=== PATIENT | female | born 1965 | race Caucasian/White ===

== ENCOUNTER 2021-10-20 20:05 | Emergency (ER) | payer OTHER ==
[2021-10-20 20:52] VITALS: BP 124/70; PULSE 74; RESP 18; TEMP 98.1
--- NOTE | 2021-10-20 20:57 | ED ---
General Adult HPI - General Source: patient Mode of arrival: wheelchair Limitations: no limitations <Jocy Bo - Last Filed: 10/20/21 20:56> - History of Present Illness -: hour(s) Radiation: non-radiation Severity scale (1-10): 7 Quality: sharp Consistency: constant Improves with: immobilization Worsens with: movement Associated Symptoms: denies other symptoms Treatments Prior to Arrival: none <Edilberto Damon - Last Filed: 10/21/21 21:24> - General Chief complaint: Extremity Injury, Lower Stated complaint: Fall-R foot injury - History of Present Illness Initial comments: Patient is a 56-year-old female presenting with chief complaint of right foot pain. Patient states that she was carrying a cooler when she tripped and her foot slid underneath her. She is complaining of pain mainly on the dorsal surface of the foot in the toes. She states the pain radiates up the calf. She denies any numbness, tingling, weakness, loss of range of motion, swelling, bruising, redness. (Jocy Bo) - Related Data Home Medications Medication Instructions Recorded Confirmed Atorvastatin [Lipitor] 40 mg PO HS 12/05/15 12/05/15 Esomeprazole Magnesium [NexIUM] 40 mg PO DAILY 12/05/15 12/05/15 Sertraline HCl [Zoloft] 100 mg PO DAILY 12/05/15 12/05/15 Venlafaxine HCl ER [Effexor Xr] 150 mg PO DAILY 12/05/15 12/05/15 norethindrone ac-eth estradioL 1 tab PO DAILY 12/05/15 12/05/15 [Loestrin 21 1-20 Tablet] Allergies Allergy/AdvReac Type Severity Reaction Status Date / Time No Known Allergies Allergy Verified 10/20/21 20:53 Review of Systems ROS Other: All systems not noted in ROS Statement are negative. <Jocy Bo - Last Filed: 10/20/21 20:56> ROS Other: All systems not noted in ROS Statement are negative. <Edilberto Damon - Last Filed: 10/21/21 21:24> ROS Statement: Those systems with pertinent positive or pertinent negative responses have been documented in the HPI. Past Medical History Past Medical History: GERD/Reflux, Hyperlipidemia, Hypertension Additional Past Medical History / Comment(s): pre-diabetic diagnosed may History of Any Multi-Drug Resistant Organisms: None Reported Past Surgical History: Tubal Ligation Past Psychological History: Depression Smoking Status: Current every day smoker Past Alcohol Use History: Occasional Past Drug Use History: None Reported <Jocy Bo - Last Filed: 10/20/21 20:56> General Exam Limitations: no limitations <Jocy Bo - Last Filed: 10/20/21 20:56> General appearance: alert, in no apparent distress Head exam: Present: atraumatic, normocephalic, normal inspection Eye exam: Present: normal appearance, PERRL, EOMI. Absent: scleral icterus, conjunctival injection, periorbital swelling ENT exam: Present: normal exam, mucous membranes moist Neck exam: Present: normal inspection. Absent: tenderness, meningismus, lymphad enopathy Respiratory exam: Present: normal lung sounds bilaterally. Absent: respiratory distress, wheezes, rales, rhonchi, stridor Cardiovascular Exam: Present: regular rate, normal rhythm, normal heart sounds. Absent: systolic murmur, diastolic murmur, rubs, gallop, clicks GI/Abdominal exam: Present: soft, normal bowel sounds. Absent: distended, tenderness, guarding, rebound, rigid Extremities exam: Present: normal inspection, full ROM, tenderness (Anterior foot tenderness), normal capillary refill. Absent: pedal edema, joint swelling, calf tenderness Back exam: Present: normal inspection Neurological exam: Present: alert, oriented X3, CN II-XII intact Psychiatric exam: Present: normal affect, normal mood Skin exam: Present: warm, dry, intact, normal color. Absent: rash <Edilberto Damon - Last Filed: 10/21/21 21:24> Course <Edilberto Damon - Last Filed: 10/21/21 21:24> Vital Signs 10/20/21 20:45 Temperature 98.1 F Pulse Rate 74 Respiratory 18 Rate Blood Pressure 124/70 O2 Sat by Pulse 100 Oximetry - Reevaluation(s) Reevaluation #1: 10/21/21 Medical records reviewed (Edilberto Damon) Reevaluation #2: 10/21/21 Patient has pain control here in the ER (Edilberto Damon) Reevaluation #3: 10/21/21 Patient informed results questions are answered (Edilberto Damon) Medical Decision Making - Radiology Data Radiology results: report reviewed (X-ray right foot is negative for fracture), image reviewed <Edilberto Damon - Last Filed: 10/21/21 21:24> - Medical Decision Making 48 female DF for evaluation of foot injury pain. Patient control refill, x-ray shows no fracture (Edilberto Damon) Disposition <Jocy oB - Last Filed: 10/20/21 20:56> Is patient prescribed a controlled substance at d/c from ED?: No <Edilberto Damon - Last Filed: 10/21/21 21:24> Clinical Impression: Right foot pain, Right leg pain Disposition: HOME SELF-CARE Condition: Good Instructions (If sedation given, give patient instructions): Ankle Sprain (ED), Knee Sprain (ED) Referrals: Nonstaff,Physician [Primary Care Provider] - 1-2 days
--- NOTE | 2021-10-20 21:33 | XR ---
EXAMINATION TYPE: XR foot complete RT, XR toes RT, XR tibia fibula RT DATE OF EXAM: 10/20/2021 CLINICAL HISTORY: pain TECHNIQUE: Frontal, lateral and oblique images of the right foot are obtained. 3 views are also obtai concepcion of the right third digit. AP and lateral views of the tibia and fibula. COMPARISON: None. FINDINGS: There is no acute fracture/dislocation evident. The joint spaces appear within normal bates its. The overlying soft tissue appears unremarkable. IMPRESSION: There is no acute fracture or dislocation. ICD 10 NO FRACTURE, INITIAL EVALUATION
[2021-10-20] MEDS ORDERED: traMADol 50 MG STARTER PACK 3 TAB BTL PO STA (22:20)
[2021-10-20] MEDS ORDERED: traMADol 50 MG TAB PO STA (22:20)
== END 2021-10-20 23:29 | disposition home or self-care (01) ==
LOC: EC 20:05
DX: M79.671 Pain in right foot (principal); E78.5 Hyperlipidemia, unspecified; I10 Essential (primary) hypertension; K21.9 Gastro-esophageal reflux disease without esophagitis; F17.200 Nicotine dependence, unspecified, uncomplicated; Z79.83 Long term (current) use of bisphosphonates
CPT/HCPCS: 99283